=== PATIENT | female | born 1950 | race Caucasian/White ===

== ENCOUNTER 2017-04-05 14:58 | Outpatient (CLI) | payer OTHER ==
--- NOTE | 2017-04-08 16:08 | DEXA Report ---
DEXA SCAN: 04/05/2017 CLINICAL INDICATION: Postmenopausal. TECHNIQUE: Dual energy x-ray absorptiometry (DXA) was performed on a [employer] system. Regions measured are the AP spine, femoral neck, and, if needed, forearm. COMPARISON: None. In accordance with the International Society for Clinical Densitometry (ISCD) guidelines, data from previous exams may be reanalyzed using current recommendations and techniques. This is done to allow a more accurate basis for comparison with the current study. FINDINGS: The data for the lumbar spine is as follows: REGION BMD (g/cm/cm) T-SCORE Z-SCORE L1 1.007 -1.0 0.7 L2 1.118 -0.7 1.1 L3 1.202 0.0 1.7 L4 1.195 0.0 1.7 TOTAL 1.136 -0.4 1.4 NOTE: All evaluable vertebrae are used for classification. The data for the hip is as follows: REGION BMD (g/cm/cm) T-SCORE Z-SCORE Neck 0.799 -1.7 -0.1 TOTAL 0.876 -1.0 0.3 NOTE: The femoral neck or total proximal femur, whichever is lowest, is used for classification. IMPRESSION: THE WHO CLASSIFICATION BASED ON THE INTERNATIONAL REFERENCE STANDARD IS OSTEOPENIA (REFERENCE LEFT FEMORAL NECK). THE FRACTURE RISK IS INCREASED. RECOMMENDATION: Patients with diagnosis of osteoporosis or osteopenia should have regular bone mineral density assessment. For those eligible for Medicare, routine testing is allowed once every 2 years. Testing frequency can be increased for patients who have rapidly progressing disease or for those who are receiving medical therapy to restore bone mass. COMMENT: World Health Organization (WHO) definitions for osteoporosis and osteopenia: NORMAL BMD: T-score at -1.0 or higher, fracture risk is low. OSTEOPENIA BMD: T-score between -1.0 and -2.5, fracture risk is increased. OSTEOPOROSIS BMD: T-score at -2.5 or lower, fracture risk high. National Osteoporosis Foundation recommends: 1. Obtain adequate dietary calcium (at least 1200 mg per day) and vitamin D (400 -800 international units per day). 2. Participate, as appropriate, in regular weightbearing and muscle- strengthening exercise. 3. Avoid tobacco use and reduce alcohol and caffeine intake. 4. For more detailed information see the website at www.NOF.org. MTDD
== END 2017-04-05 14:59 | disposition home or self-care (01) ==
LOC: DI 14:58
PROVIDERS: ATTEND Physician Assistant
DX: Z13.820 Encounter for screening for osteoporosis (principal); N95.8 Other specified menopausal and perimenopausal disorders; M85.88 Other specified disorders of bone density and structure, other site
CPT/HCPCS: 77080

== ENCOUNTER 2017-06-12 11:48 | Outpatient (CLI) | payer OTHER ==
--- NOTE | 2017-06-14 11:29 | Mammography Report ---
DIGITAL SCREENING MAMMOGRAM: 06/12/2017 CLINICAL INDICATION: A 66-year-old with history of late childbearing, for screening. COMPARISON: 08/2014, 10/2009. TECHNIQUE: Routine CC and MLO projections were obtained of the breasts. FINDINGS: Parenchymal tissue within both breasts is heterogeneously dense, which may lower the sensi tivity of mammography; however, there are no dominant masses, suspicious microcalcifications, or seco ndary signs of malignancy. In comparison to the previous studies, there are no significant changes. ASSESSMENT: NO MAMMOGRAPHIC EVIDENCE OF MALIGNANCY. NO SIGNIFICANT INTERVAL CHANGES. RECOMMENDATION: Screening mammography is recommended annually. BIRADS category 1 - negative. STANDARD QUALIFYING STATEMENTS 1. This examination was reviewed with the aid of Computed-Aided Detection (CAD). 2. A negative or benign imaging report should not delay biopsy if clinically suspicious findings are present. Consider surgical consultation if warranted. More than 5% of cancers are not identified by i maging. 3. Dense breasts may obscure an underlying neoplasm. JOB #: [id number] EXT JOB #:[id number]
== END 2017-06-12 11:49 | disposition home or self-care (01) ==
LOC: DI 11:48
PROVIDERS: ATTEND Physician Assistant
DX: Z12.31 Encounter for screening mammogram for malignant neoplasm of breast (principal)
CPT/HCPCS: 77067

== ENCOUNTER 2017-07-01 11:07 | Outpatient (CLI) | payer OTHER | END 2017-07-01 11:08 | disposition home or self-care (01) | LOC: SC 11:07 | PROVIDERS: ATTEND Internal Medicine Pulmonary Disease | DX: G47.30 Sleep apnea, unspecified (principal); G47.10 Hypersomnia, unspecified; R06.83 Snoring; R51 Headache; G47.8 Other sleep disorders | CPT/HCPCS: 99203; 99212 ==

== ENCOUNTER 2017-08-28 20:54 | Outpatient (CLI) | payer OTHER | END 2017-08-28 20:55 | disposition home or self-care (01) | LOC: SC 20:54 | PROVIDERS: ATTEND Internal Medicine Pulmonary Disease | DX: G47.33 Obstructive sleep apnea (adult) (pediatric) (principal) | CPT/HCPCS: 95810 ==

== ENCOUNTER 2017-09-24 13:14 | Outpatient (CLI) | payer OTHER | END 2017-09-24 13:15 | disposition home or self-care (01) | LOC: SC 13:14 | PROVIDERS: ATTEND Internal Medicine Pulmonary Disease | DX: G47.33 Obstructive sleep apnea (adult) (pediatric) (principal) | CPT/HCPCS: 99212; 99213 ==

== ENCOUNTER 2017-11-16 20:24 | Outpatient (CLI) | payer OTHER | END 2017-11-16 20:25 | disposition home or self-care (01) | LOC: SC 20:24 | PROVIDERS: ATTEND Internal Medicine Pulmonary Disease | DX: G47.33 Obstructive sleep apnea (adult) (pediatric) (principal) | CPT/HCPCS: 95811 ==

== ENCOUNTER 2017-11-18 13:26 | Outpatient (CLI) | payer OTHER | END 2017-11-18 13:27 | disposition home or self-care (01) | LOC: SC 13:26 | PROVIDERS: ATTEND Internal Medicine Pulmonary Disease | DX: G47.33 Obstructive sleep apnea (adult) (pediatric) (principal) | CPT/HCPCS: 99212; 99213 ==

== ENCOUNTER 2017-12-24 14:13 | Outpatient (CLI) | payer MEDICARE, OTHER | END 2017-12-24 14:14 | disposition home or self-care (01) | LOC: SC 14:13 | PROVIDERS: ATTEND Internal Medicine Pulmonary Disease | DX: G47.33 Obstructive sleep apnea (adult) (pediatric) (principal) | CPT/HCPCS: 99213; G0463; 99212 ==

== ENCOUNTER 2018-10-07 09:57 | Outpatient (CLI) | payer MEDICARE, OTHER | END 2018-10-07 09:58 | disposition home or self-care (01) | LOC: SC 09:57 | PROVIDERS: ATTEND Internal Medicine Pulmonary Disease | DX: G47.33 Obstructive sleep apnea (adult) (pediatric) (principal) | CPT/HCPCS: 99213; G0463; 99212 ==

== ENCOUNTER 2019-01-28 10:31 | Outpatient (CLI) | payer SELFPAY | END 2019-01-28 10:32 | disposition home or self-care (01) | LOC: LAB 10:31 | DX: Z01.89 Encounter for other specified special examinations (principal) | CPT/HCPCS: 36415 ==

== ENCOUNTER 2019-05-01 10:21 | Outpatient (CLI) | payer MEDICARE, OTHER ==
--- NOTE | 2019-05-04 12:02 | Mammography Report ---
Reason: ROUTINE MAMMO Procedure Date: 05/01/2019 Accession Number: [id number] / [id number] Procedure: [facility] - Screening Mammo w/Jose Juan CPT Code: FULL RESULT: EXAM: Screening Mammo w/Jose Juan DATE: 05/01/2019 10:53 AM CLINICAL HISTORY: Screening encounter. History of early menses and late childbearing. TECHNIQUE: (B) - Bilateral CC and MLO views were obtained. COMPARISON: 06/12/2017 through 11/07/2009. PARENCHYMAL PATTERN: (A) - The breast(s) demonstrate(s) scattered fibroglandular densities. FINDINGS: There are no suspicious masses, calcifications, or areas of distortion. IMPRESSION: Negative examination. BI-RADS category 1. RECOMMENDATION: (ANNUAL) - Recommend routine annual screening mammography. BI-RADS CATEGORY: (1) - Negative. STANDARD QUALIFYING STATEMENTS: 1. This examination was not reviewed with the aid of Computer-Aided Detection (CAD). 2. A negative or benign imaging report should not preclude biopsy if clinically suspicious findings are present. 3. Dense breasts may obscure an underlying neoplasm. 4. This examination was reviewed with the aid of 3D breast imaging (tomosynthesis).
== END 2019-05-01 10:22 | disposition home or self-care (01) ==
LOC: DI 10:21
PROVIDERS: ATTEND Physician Assistant
DX: Z12.31 Encounter for screening mammogram for malignant neoplasm of breast (principal)
CPT/HCPCS: 77063; 77067

== ENCOUNTER 2020-01-11 14:26 | Outpatient (CLI) | payer MEDICARE, OTHER ==
--- NOTE | 2020-01-11 14:45 | SLEEP CARE CONSULTATION ---
Information from patient questionnaire entered by Tiara Maxwell. I have reviewed and concur with the information entered by Tiara Maxwell. This document represents the service I personally performed and the decisions made by me, Julio Leavitt MD, [facility]. History of Present Illness Service Date and Time: 01/11/2020 1426 Previous diagnosis: Moderate, Obstructive Sleep Apnea-Hypopnea Syndrome AHI: 20.4 (in 2018) Reason for follow up: annual (last seen 2019) Equipment type: CPAP Equipment obtained from: [facility] (in [place]) Mask style: Full face Mask brand: Resmed Prior sleep studies: Yes Year and Where: 2018 - [facility] HPI additional information: HPI: Ms. Alfaro returned today for follow up of nasal CPAP therapy. She was diagnosed to have moderate obstructive sleep apnea-hypopnea syndrome. The patient now gets supplies from [facility] in [place]. She wears a ResMed AirFit F20 full face mask. She reports using the device nightly and all through the night. The compliance report shows usage in 180 nights out of the past 180 nights, averaging 7.7 hours a night. The > 4 hour compliance rate for the past 30 days is 100%. She thinks that the pressure of 4 - 6 cmH2O is comfortable. On the CPAP therapy she notices improvement in her sleep quality, and that she wakes up feeling fresher in the morning and more awake/alert during the day. The [place] Sleepiness Scale score is 3. Her notices no snore at all. The average residual AHI is 1; and air leak, 1.7 L/min. The 95th percentile pressure is 5.5 cmH2O. CPAP Compliance Data - Data Reviewed with Patient Average duration of nightly device use: 7.75 Compliance rate %: 100 (180 days) Current pressure setting (cmH2O): 4.4-5.6 Humidity settin Average residual AHI: 1.0 Subjective Initial [place] Sleepiness Scale score: 9 (in 2017) Current [place] Sleepiness Scale score: 3 Review of Systems Review of systems same as previous: Yes Physical Exam Weight: 132 lb Impression and Plan IMPRESSION: 1. Obstructive Sleep Apnea-Hypopnea Syndrome, moderate, with the patient continuing to do well on nasal CPAP therapy. She has excellent compli ance and significant clinical improvement. The current pressure appears effective but not as comfortable. Overall, she is very satisfied with treatment and plans to continue with it long-term. No adjustment is necessary. PLAN: 1. Leave autoCPAP at 4 - 6 cmH2O. 2. Try a nasal mask. 3. Return in one year for follow up or earlier if there is any problem with the treatment. Visit Type: In Office Time Spent with Patient (minutes): 15 Provider Statement: I spent 100% of the Face to Face Visit with the patient with greater than 50% spent counseling the patient and coordination of care.
== END 2020-01-11 14:27 | disposition home or self-care (01) ==
LOC: SC 14:26
PROVIDERS: ATTEND Internal Medicine Pulmonary Disease
DX: G47.33 Obstructive sleep apnea (adult) (pediatric) (principal)
CPT/HCPCS: 99213; G0463; 99212

== ENCOUNTER 2020-05-30 08:36 | Outpatient (CLI) | payer MEDICARE, OTHER ==
--- NOTE | 2020-05-30 10:46 | Ultrasound Report ---
PROCEDURE: Abdomen Limited INDICATIONS: ELEVATED LACTIC ACID AND TRANSAMINASE TECHNIQUE: Real-time scanning was performed of the abdominal and retroperitoneal organs, with image documentatio n. COMPARISON: None. FINDINGS: Liver: Liver is normal in size and mildly heterogeneous in echotexture. Gallbladder: The gallbladder is normal without stones or sludge. Normal wall thickness. No pericholec ystic fluid or sonographic Koo sign. Biliary ducts: Intrahepatic bile ducts are non-dilated. Extrahepatic bile duct caliber measures 5 m m. Normal is 6-7 mm or less in diameter, or 10 mm or less post-cholecystectomy. Pancreas: Visualized portions of the pancreas are sonographically normal. Spleen: Spleen is normal in size and homogeneous in echotexture. Kidneys: Right kidney measures 9.3 cm long. Normal cortical echotexture. No hydronephrosis or nephr olithiasis. No solid masses. Aorta: Visualized aorta is normal in caliber at less than 3 cm. IVC: Intrahepatic inferior vena cava is patent. Miscellaneous: No free abdominal fluid. IMPRESSION: 1. Mildly heterogeneous hepatic echotexture. This is nonspecific but can indicate steatosis or other intrinsic liver disease. 2. Otherwise normal right upper quadrant ultrasound. Reviewed by: Mariana Escalera MD on 05/30/2020 10:45 AM PST Approved by: Mariana Escalera MD on 05/30/2020 10:45 AM PST Station ID: [id number]
== END 2020-05-30 08:37 | disposition home or self-care (01) ==
LOC: DI 08:36
PROVIDERS: ATTEND Nurse Practitioner Family
DX: R74.01 Elevation of levels of liver transaminase levels (principal)
CPT/HCPCS: 76705

== ENCOUNTER 2021-01-09 11:14 | Outpatient (CLI) | payer MEDICARE, OTHER ==
--- NOTE | 2021-01-09 11:30 | SLEEP CARE CONSULTATION ---
Information from patient questionnaire entered by Tiara Maxwell. I have reviewed and concur with the information entered by Tiara Maxwell. This document represents the service I personally performed and the decisions made by me, Julio Leavitt MD, [facility]. History of Present Illness Service Date and Time: 01/09/2021 1114 Previous diagnosis: Moderate, Obstructive Sleep Apnea-Hypopnea Syndrome AHI: 20.4 (in 2018) Reason for follow up: annual (last seen 12/2019) Equipment type: CPAP Equipment obtained from: [employer] Mask style: Full face Prior sleep studies: Yes Year and Where: 2018 - [facility] HPI additional information: HPI: Ms. Alfaro was called today for follow up of nasal CPAP therapy. She was diagnosed to have moderate obstructive sleep apnea-hypopnea syndrome. [facility] and was fitted with a full face mask because she is a mouth breather.. She reports using the device nightly and all through the night. The compliance report shows usage in 180 nights out of the past 180 nights, averaging 8 hours a night. She complained of occasional headache but no particular problem with the device such as soreness on the face, dry nose, epistaxis, or nasal congestion. She thinks that the pressure of 4.4 5.6 cmH2O is comfortable (she set it herself). On the CPAP therapy she notices improvement in her sleep quality, and that she wakes up feeling fresher in the morning and more awake/alert during the day. The average residual AHI is 0.6; and air leak, 2.1 L/min. The 90th percentile pressure is 5.5 cmH2O. CPAP Compliance Data - Data Reviewed with Patient Average duration of nightly device use: 8 hr 3 min Compliance rate %: 99 (180 days) Current pressure setting (cmH2O): 4.4-5.6 Humidity settin Average residual AHI: 0.6 Subjective Initial [place] Sleepiness Scale score: 9 (in 2017) Allergies and Home Medications Drug allergies reviewed: Yes Home medication list reviewed: Yes Review of Systems Review of systems same as previous: Yes Impression and Plan IMPRESSION: 1. Obstructive Sleep Apnea-Hypopnea Syndrome, moderate, with the patient doing well on nasal CPAP therapy. She has excellent compliance and significant clinical improvement. The current pressure appears effective and comfortable. Overall, she is very satisfied with treatment and plans to continue with it long-term. No adjustment is necessary today. PLAN: 1. Continue with autoCPAP set at 4.4 and 5.6 cmH2O. 2. Try a different full face mask to see if it would help to relieve her headache. 3. Return for follow up in a year or earlier if there is any problem. Visit Type: Telehealth Video Video Type: VSee Patient Location: Home Location of Provider: Office Patient agrees and consents to this telehealth visit type: Yes Patient agrees to have their insurance billed: Yes Time Spent with Patient (minutes): 15 Provider Statement: I spent 100% of the Telehealth Video Call with the patient with greater than 50% spent counseling the patient and coordination of care.
== END 2021-01-09 11:15 | disposition home or self-care (01) ==
LOC: SC 11:14
PROVIDERS: ATTEND Internal Medicine Pulmonary Disease
DX: G47.33 Obstructive sleep apnea (adult) (pediatric) (principal)

== ENCOUNTER 2021-03-08 11:25 | Outpatient (CLI) | payer MEDICARE, OTHER ==
[2021-03-08 15:06] LABS: ALBUMIN 4.1 g/dL (3.2-5.5); ALBUMIN/GLOBULIN RATIO 1.2 (1.0-2.2); ALKALINE PHOSPHATASE 74 IU/L (42-121); ALT ALANINE AMINOTRANSFERASE 18 IU/L (10-60); AST ASPARTATE AMINOTRANSFERASE 37 IU/L (10-42); BILIRUBIN,TOTAL 0.7 mg/dL (0.2-1.0); BUN - BLOOD UREA NITROGEN 15 mg/dL (6-20); CALCIUM 8.9 mg/dL (8.5-10.3); CARBON DIOXIDE - CO2 26 mmol/L (21-32); CHLORIDE 103 mmol/L (101-111); CHOLESTEROL 185 mg/dL; CREATININE 0.8 mg/dL (0.4-1.0); GFR - MDRD 71 (>89); GLUCOSE 96 mg/dL (70-100); HDL CHOLESTEROL 61 mg/dL; LDL CHOLESTEROL,CALCULATED 108 mg/dL; LDL/HDL RATIO 1.8 (<4.4); POTASSIUM 4.2 mmol/L (3.5-5.0); SODIUM 139 mmol/L (135-145); TOTAL PROTEIN 7.5 g/dL (6.7-8.2); TRIGLYCERIDES 81 mg/dL; VLDL CHOLESTEROL 16 mg/dL
== END 2021-03-08 11:26 | disposition home or self-care (01) ==
LOC: LAB.S 11:25
PROVIDERS: ATTEND Nurse Practitioner Family
DX: E78.5 Hyperlipidemia, unspecified (principal); R94.6 Abnormal results of thyroid function studies
CPT/HCPCS: 36415; 80053; 80061; 83721; 84443

== ENCOUNTER 2021-05-08 13:06 | Outpatient (CLI) | payer MEDICARE, OTHER ==
--- NOTE | 2021-05-09 10:23 | Mammography Report ---
BILATERAL DIGITAL SCREENING MAMMOGRAM 3D/2D WITH EXAGGERATED CC: 05/08/2021 CLINICAL: Family history of breast cancer. Routine screening. Comparison is made to exams dated: 05/01/2019 mammogram, 06/12/2017 mammogram, and [facility] The tissue of both breasts is heterogeneously dense. This may lowe r the sensitivity of mammography. No significant masses, calcifications, or other findings are seen in either breast. There has been no significant interval change. IMPRESSION: NEGATIVE There is no mammographic evidence of malignancy. A 1 year screening mammogram is recommended. This exam was interpreted at Station ID: [id number]. NOTE: For mammograms, a report in lay terms will be sent to the patient. Approximately 15% of breast malignancies will not be visualized mammographically. In the management of a palpable breast mass, a negative mammogram must not discourage biopsy of a clinically suspicious lesion. Electronically Signed By: Antione Jacobo M.D. [facility] [place]:05/08/2021 14:56:57 ACR BI-RADS Category 1: Negative 3341F PARENCHYMAL PATTERN: (D) - The breast(s) demonstrate(s) heterogeneously dense fibroglandular aj dempsey. BI-RADS CATEGORY: (1) - 1 RECOMMENDATION: (ANNUAL) - Recommend routine annual screening mammography. 20220509 1 year screening LATERALITY: (B)
== END 2021-05-08 13:07 | disposition home or self-care (01) ==
LOC: DI.S 13:06
PROVIDERS: ATTEND Physician Assistant
DX: Z12.31 Encounter for screening mammogram for malignant neoplasm of breast (principal); Z80.3 Family history of malignant neoplasm of breast

== ENCOUNTER 2022-02-19 13:31 | Outpatient (CLI) | payer MEDICARE, OTHER ==
--- NOTE | 2022-02-19 11:26 | SLEEP CARE CONSULTATION ---
Information from patient questionnaire entered by Derek Moe MA. I have reviewed and concur with the information entered by Derek Moe MA. This document represents the service I personally performed and the decisions made by me, Julio Leavitt MD, [facility]. History of Present Illness Service Date and Time: 02/19/2022 1120 Previous diagnosis: Moderate, Obstructive Sleep Apnea-Hypopnea Syndrome AHI: 20.4 (in 2018) Reason for follow up: annual (LAST SEEN 12/2020, [facility] 10/14/2017,) Equipment type: CPAP Equipment obtained from: [employer] Mask style: Full face Prior sleep studies: Yes Year and Where: 2017 - [facility] HPI additional information: Ms. Alfaro was called today for follow up of nasal CPAP therapy. She was diagnosed to have moderate obstructive sleep apnea-hypopnea syndrome. The patient went to [facility] [employer] for the equipment and was fitted with a full face mask because she is a mouth breather. She reports using the device nightly and all through the night. The compliance report shows usage in 364 nights out of the past 365 nights, averaging 8.4 hours a night. She complained of occasional headache but no particular problem with the device such as soreness on the face, dry nose, epistaxis, or nasal congestion. She thinks that the pressure of 4.4 5.6 cmH2O is comfortable (she set it herself). On the CPAP therapy she notices improvement in her sleep quality, and that she wakes up feeling fresher in the morning and more awake/alert during the day. The average residual AHI is 0.8; and air leak, 1.4 L/min. The 90th percentile pressure is 5.5 cmH2O. Sleep Study - Results Prior sleep studies: Yes Year and Where: 2017 - [facility] CPAP Compliance Data - Data Reviewed with Patient Average duration of nightly device use: 8 HOURS 28 MINUTES Compliance rate %: 99 (10/19/21-02/15/22) Current pressure setting (cmH2O): 4.4-5.6 Average residual AHI: 1.0 Central apnea: .2 Obstructive apnea: .5 Hypopnea: .2 Average large leak: 1.0 Subjective Initial [place] Sleepiness Scale score: 9 (in 2017) Allergies and Home Medications Drug allergies reviewed: Yes Home medication list reviewed: Yes Review of Systems Review of systems same as previous: Yes Physical Exam Vital signs obtained and entered by: Roberto Carlos MOE CMA AAMA Impression and Plan IMPRESSION: 1. Obstructive Sleep Apnea-Hypopnea Syndrome, moderate, with the patient doing well on nasal CPAP therapy. She has excellent compliance and s ignificant clinical improvement. The current pressure appears effective and comfortable. Overall, she is very satisfied with treatment and plans to continue with it long-term. No adjustment is necessary today. PLAN: 1. Continue with autoCPAP set at 4.4 and 5.6 cmH2O. 2. Try a different full face mask to see if it would help to relieve her headache. 3. Return for follow up in a year or earlier if there is any problem. She will be eligible for a new machine then. Follow up with [facility] in: 1 year Visit Type: Telehealth Video Video Type: Doximity Patient Location: Home Location of Provider: Office Patient agrees and consents to this telehealth visit type: Yes Patient agrees to have their insurance billed: Yes Time Spent with Patient (minutes): 15 Provider Statement: I spent 100% of the Telehealth Video Call with the patient with greater than 50% spent counseling the patient and coordination of care.
== END 2022-02-19 13:32 | disposition home or self-care (01) ==
LOC: SC 13:31
PROVIDERS: ATTEND Internal Medicine Pulmonary Disease
DX: G47.33 Obstructive sleep apnea (adult) (pediatric) (principal)

== ENCOUNTER 2022-05-16 07:01 | Day surgery (SDC) | payer MEDICARE, OTHER ==
[2022-05-16] MEDS ORDERED: LACTATED RINGERS 1,000 ML IV ONE (07:19)
--- NOTE | 2022-05-16 07:47 | ANESTHESIA ---
Pre-Anesthesia VS, & Labs - Diagnosis positive cologuard - Procedure colonoscopy Vital Signs: Temp Pulse Resp BP Pulse Ox O2 Flow Rate 36.2 C L 59 L 14 101/68 93 0 05/16/22 07:21 05/16/22 07:21 05/16/22 07:21 05/16/22 07:21 05/16/22 07:21 05/16/22 07:21 Height: 5 ft 2 in Weight (kg): 60 kg Body Mass Index: 24.2 BMI Classification: Normal - NPO >8 hours - Is Patient ?: No Home Medications and Allergies Home Medications: Ambulatory Orders Bromelains 500 mg PO DAILY 05/15/22 Cholecalciferol (Vitamin D3) [Vitamin D3] 1,250 mcg PO DAILY 05/15/22 Escitalopram Oxalate 5 mg PO DAILY 05/15/22 Green Tea/Thean/Elderb/Paupack [Olivdefense 300-150-75 mg Cap] 1 each PO DAILY 05/15/22 Lactobacillus Combination No.4 [Probiotic] 1 each PO DAILY 05/15/22 Magnesium 250 mg PO DAILY 05/15/22 Multivitamin 1 each PO DAILY 05/15/22 Ubidecarenone [Co Q-10] 10 mg PO DAILY 05/15/22 glucosamine HCL [Glucosamine HCl] 1,500 mg PO DAILY 05/15/22 Bromelains 500 mg PO DAILY 05/15/22 Cholecalciferol (Vitamin D3) [Vitamin D3] 1,250 mcg PO DAILY 05/15/22 Escitalopram Oxalate 5 mg PO DAILY 05/15/22 Green Tea/Thean/Elderb/Paupack [Olivdefense 300-150-75 mg Cap] 1 each PO DAILY 05/15/22 Lactobacillus Combination No.4 [Probiotic] 1 each PO DAILY 05/15/22 Magnesium 250 mg PO DAILY 05/15/22 Multivitamin 1 each PO DAILY 05/15/22 Ubidecarenone [Co Q-10] 10 mg PO DAILY 05/15/22 glucosamine HCL [Glucosamine HCl] 1,500 mg PO DAILY 05/15/22 Allergies/Adverse Reactions: Allergies Allergy/AdvReac Type Severity Reaction Status Date / Time No Known Drug Allergies Allergy Verified 05/16/22 07:29 Anes History & Medical History - Anesthetic History Anesthesia Complications: reports: No previous complications - Medical History Cardiovascular: reports: None Pulmonary: reports: Sleep apnea, CPAP use Gastrointestinal: reports: None Urinary: reports: None Musculoskeletal: reports: Osteoarthritis, Fibromyalgia Endocrine/Autoimmune: reports: None - Surgical History Gynecologic: reports: Dilation and currettage, Other Orthopedic: reports: Other Exam General: Alert, Oriented x3 Mouth Opening: Greater than 4 Fingerbreadths Mallampati classification: II Thyromental Distance: greater than 6 cm Respiratory: Lungs clear Cardiovascular: Regular rate Plan Anesthesia Type: Total IV Consent for Procedure(s) Verified and Reviewed: Yes Code Status: Attempt Resuscitation ASA classification: 2-Mild systemic disease Is this case an emergency?: No
[2022-05-16] MEDS ORDERED: LACTATED RINGERS 850 ML IV ONE (08:41)
[2022-05-16] MEDS ORDERED: PROPOFOL 500 MG/50 ML 500 MG/50 ML VIAL ONE (08:57)
[2022-05-16 09:03] VITALS: BP 108/82
--- NOTE | 2022-05-16 09:20 | ANESTHESIA POST OP EVALUATION ---
Anesthesia Post Eval - Post Anesthesia Eval Vitals: Last Vital Signs Temp 36.0 C L 05/16/22 09:02 Pulse 60 05/16/22 09:02 Resp 16 05/16/22 09:02 BP 108/82 H 05/16/22 09:02 Pulse Ox 97 05/16/22 09:02 O2 Flow Rate 0 05/16/22 07:21 CV Function Including HR & BP: Stable Pain Control: Satisfactory Nausea & Vomiting: Negative Mental Status: Baseline Respiratory Status: Airway Patent Hydration Status: Satisfactory Anesthesia Complications: None
== END 2022-05-16 07:02 | disposition home or self-care (01) ==
LOC: SDS 07:01
PROVIDERS: ATTEND Surgery
DX: R19.5 Other fecal abnormalities (principal); K62.5 Hemorrhage of anus and rectum; K57.30 Diverticulosis of large intestine without perforation or abscess without bleeding; K64.8 Other hemorrhoids; G47.30 Sleep apnea, unspecified
CPT/HCPCS: 45378; J7120

== ENCOUNTER 2022-06-28 08:53 | Outpatient (CLI) | payer MEDICARE, OTHER ==
--- NOTE | 2022-06-29 10:37 | Mammography Report ---
BILATERAL DIGITAL SCREENING MAMMOGRAM 3D/2D: 06/28/2022 CLINICAL: Routine screening. Comparison is made to exams dated: 05/08/2021 mammogram, 05/01/2019 mammogram, and 06/12/2017 [facility]og [facility]. There are scattered areas of fibroglandular density in both breasts (category b / 25%-50% glandular t issue). No significant masses, calcifications, or other findings are seen in either breast. There has been no significant interval change. IMPRESSION: NEGATIVE There is no mammographic evidence of malignancy. A 1 year screening mammogram is recommended. Based on the Tyrer Cuzick model (a risk assessment model) the patients lifetime risk is 7.2% and her 10 year risk is 4.3%. According to the ACR, ACS, and NCCN guidelines, an annual breast MRI exam lobito g with mammogram is recommended if the patients lifetime risk is 20% or greater. This exam was interpreted at Station ID: [id number]. NOTE: For mammograms, a report in lay terms will be sent to the patient. Approximately 15% of breast malignancies will not be visualized mammographically. In the management of a palpable breast mass, a negative mammogram must not discourage biopsy of a clinically suspicious lesion. Electronically Signed By: Rajinder lopez/dona:06/28/2022 11:38:06 ACR BI-RADS Category 1: Negative 3341F PARENCHYMAL PATTERN: (A) - The breast(s) demonstrate(s) scattered fibroglandular densities. BI-RADS CATEGORY: (1) - 1 RECOMMENDATION: (ANNUAL) - Recommend routine annual screening mammography. [id number] 1 year screening LATERALITY: (B)
== END 2022-06-28 08:54 | disposition home or self-care (01) ==
LOC: DI.S 08:53
PROVIDERS: ATTEND Nurse Practitioner Family
DX: Z12.31 Encounter for screening mammogram for malignant neoplasm of breast (principal)

== ENCOUNTER 2023-03-11 10:00 | Outpatient (CLI) | payer MEDICARE, OTHER ==
--- NOTE | 2023-03-11 09:51 | SLEEP CARE CONSULTATION ---
Information from patient questionnaire entered by Prasanth Cee. I have reviewed and concur with the information entered by Prasanth Cee. This document represents the service I personally performed and the decisions made by me, Julio Leavitt MD, [facility]. History of Present Illness Service Date and Time: 03/11/2023 0920 Previous diagnosis: Moderate, Obstructive Sleep Apnea-Hypopnea Syndrome AHI: 20.4 (in 2018) Reason for follow up: annual (LAST SEEN 02/2022) Equipment type: CPAP (RESMED) Equipment obtained from: [employer] Mask style: Full face [facility] Yes [facility] additional information: Ms. Alfaro was seen via video telemed today for follow up of nasal CPAP therapy. She was diagnosed to have moderate obstructive sleep apnea-hypopnea syndrome. The patient went to [facility] [employer] for the equipment and was fitted with a full face mask because she is a mouth breather. She reports using the device nightly and all through the night. The compliance report shows usage in 365 nights out of the past 365 nights, averaging 8.3 hours a night. She complained of occasional headache but no particular problem with the device such as soreness on the face, dry nose, epistaxis, or nasal congestion. She thinks that the pressure of 4.2 5.4 cmH2O is comfortable (she set it herself). On the CPAP therapy she notices improvement in her sleep quality, and that she wakes up feeling fresher in the morning and more awake/alert during the day. The average residual AHI is 1.0; and air leak, 1.7 L/min. The 90th percentile pressure is 5.5 cmH2O. Sleep Study - Results Prior sleep studies: Yes [facility] and Where[facility] Compliance Data - Data Reviewed with Patient Average duration of nightly device use: 8HRS 21MIN Compliance rate %: 100 (12/08/22-03/07/23) Current pressure setting (cmH2O): 4.2-5.4 Average residual AHI: 1.4 Subjective Initial [place] Sleepiness Scale score: 9 (in 2017) Current [place] Sleepiness Scale score: 6 (03/11/23) Allergies and Home Medications Drug allergies reviewed: Yes Home medication list reviewed: Yes Allergy and home medication list: Allergies No Known Drug Allergies Allergy (Verified 03/08/23 10:08) Review of Systems Review of systems same as previous: Yes Physical Exam Vital signs obtained and entered by: PRASANTH Sotomayor MA Height: 5 ft 2 in (PER PT) Weight: 133 lb (PER PT) Body Mass Index: 24.3 BMI Classification: Normal Impression and Plan IMPRESSION: 1. Obstructive Sleep Apnea-Hypopnea Syndrome, moderate, with the patient doing well on nasal CPAP therapy. She has excellent compliance and significant clinical improvement. The current pressure appears effective and comfortable. Overall, she is very satisfied with treatment and plans to continue with it long-term. Because the CPAP is now older than the useful life of 5 years, I will order the patient a new one and make it an autoCPAP set between 4.2 and 5.4 cmH2O. PLAN: 1. Continue with autoCPAP set at 4.4 and 5.6 cmH2O. 2. Prescription made for an autoCPAP, heated humidifier, and related supplies. 3. Return for follow up in a year or earlier if there is any problem. She will be eligible for a new machine then. Follow up with Sleep Care in: 1 year Visit Type: Telehealth Video Video Type: Doximity Time Spent with Patient (minutes): 15 Provider Statement: I spent 100% of the Telehealth Video Call with the patient with greater than 50% spent counseling the patient and coordination of care.
== END 2023-03-11 10:01 | disposition home or self-care (01) ==
LOC: SC 10:00
PROVIDERS: ATTEND Internal Medicine Pulmonary Disease
DX: G47.33 Obstructive sleep apnea (adult) (pediatric) (principal)
CPT/HCPCS: 99212; G0463

== ENCOUNTER 2023-08-06 08:57 | Outpatient (CLI) | payer MEDICARE, OTHER ==
--- NOTE | 2023-08-06 09:20 | Sleep Patient Instructions ---
Sleep Center Visit Summary - Patient Visit Information Reason for Visit: First compliance with new device - Patient Instructions Additional Instructions: You were here for follow up of CPAP therapy. You will be continued on CPAP therapy with pressure at 4.4-5.6 cmH2O. You have requested a change in machines due to difficulties with new device. I will write a new prescription to change to an updated version of the ResMed Airsense 10. Please let us know when you get this machine and set up a new compliance visit. You should follow up with sleep care one month after obtaining new machine. You may contact us sooner for any questions or concerns. - Clinic Information Contact: [facility] [address] [place] [address] [email or web address] T: [phone]
--- NOTE | 2023-08-06 09:27 | SLEEP CARE CONSULTATION ---
Information from patient questionnaire entered by Anna Cee. I have reviewed and concur with the information entered by Anna Cee. This document represents the service I personally performed and the decisions made by , Simin Duckworth ARNP. History of Present Illness Service Date and Time: 08/06/2023 0857 Previous diagnosis: Moderate, Obstructive Sleep Apnea-Hypopnea Syndrome AHI: 20.4 (in 2018) Reason for follow up: first compliance after device update Equipment type: CPAP (RESMED Airsense 11, s/u 02/2023) Equipment obtained from: Other ([employer]; getting supplies) Mask style: Full face Mask brand: Resmed (AirFit) Backup mask available: Yes Last cushion change: beginning of Jul Prior sleep studies: Yes Year and Where: 2017 - [facility] HPI additional information: STEFANIA MARTIN was diagnosed to have moderate, AHI 20.4, obstructive sleep apnea- hypopnea syndrome and returned today for CPAP therapy first compliance after updating device follow-up. Sleep Study - Results Prior sleep studies: Yes Year and Where: 2018 - [facility] CPAP Compliance Data - Data Reviewed with Patient Average duration of nightly device use: 8 HRS 11 MINS Compliance rate %: 97 (03/19/23-04/17/23) Current pressure setting (cmH2O): 4.4-5.6 Average residual AHI: 0.6 Central apnea: 0 Obstructive apnea: 0.2 Average large leak: 2.7 L/min Subjective Missed days of use due to: reports: other (issues with new device/changed back to old CPAP) Patient concerns: reports: aerophagia (on new machine only), other (headaches). denies: mask discomfort, air blowing in eyes, mask leak noise, condensation in mask/hose, nasal congestion, dry mouth, nose, throat, epistaxis Observed to snore while using device: No Current pressure setting perceived as: comfortable On therapy, patient: reports: sleeping better, awakening more refreshed, being more awake and alert during the day, more rested overall. denies: drowsiness while driving Initial [place] Sleepiness Scale score: 9 (in 2017) Current [place] Sleepiness Scale score: 4 Allergies and Home Medications Known drug allergies: No Drug allergies reviewed: Yes Home medication list reviewed: Yes (no changes) Allergy and home medication list: Allergies No Known Drug Allergies Allergy (Verified 08/02/23 09:45) Review of Systems Review of systems same as previous: Yes (no changes) Physical Exam Vital signs obtained and entered by: CORETTA FUNG Blood Pressure: 106/75 Cuff size: regular (left arm) Heart Rate: 67 O2 Saturation: 95 Height: 5 ft 2 in (PER PT) Weight: 135 lb Body Mass Index: 24.7 BMI Classification: Normal Impression and Plan 1. Obstructive Sleep Apnea-Hypopnea Syndrome, moderate, with good treatment compliance and good apnea control. On CPAP therapy, the patient has better sleep quality and is more rested overall. Patient did reach compliance on her new ResMed Airsense 11 during the initial compliance period. However, after using for some time she noticed an increase in problems including feeling bloated and having frequent headaches. She says she also seem to be feeling more and more fatigued and suffering increased anxiety, depression and memory loss. Her suggested it may be her new machine so she discontinued using the Airsense 11 and started using her old device. She says all of the symptoms resolved and she is sleeping well again with her old ResMed Airsense 10. She would like to exchange the Airsense 11 for an new Airsense 10. I will write a prescription requesting an exchange for a different machine. She is to call us to set up a follow-up because we will need to do a compliance visit with a new machine. She voiced understanding and agreement with this plan of care. Patient's apnea severity and rationale for treatment to reduce apnea, improve sleep quality and reduce cardiovascular and cerebrovascular events was reviewed. * Continue auto CPAP pressure at 4.4-5.6 cmH2O * Script to get CPAP replacement to other model, ResMed Airsense 10 and return the ResMed Airsense 11 * Notify me if snoring with mask or feeling that the pressure is too much or too little * Maintain healthy weight * Call this office if any problems using CPAP * Return for follow up one month after obtaining new device, or sooner if concerns arise Counseling Topics: Spare mask, Weight control Prescriptions: Auto CPAP (change CPAP) Follow up with Sleep Care in: other (compliance visit with new CPAP) Visit Type: In Office Time Spent with Patient (minutes): 24 Provider Statement: I spent 100% of the Face to Face Visit with the patient with greater than 50% spent counseling the patient and coordination of care.
[2023-08-06 09:29] VITALS: BP 106/75; O2SAT 95
== END 2023-08-06 08:58 | disposition home or self-care (01) ==
LOC: SC 08:57
PROVIDERS: ATTEND Nurse Practitioner Family
DX: G47.33 Obstructive sleep apnea (adult) (pediatric) (principal)
CPT/HCPCS: 99213; G0463; 99212